=== PATIENT | female | born 1970 | race Two or more races ===

== ENCOUNTER → 2025-05-21 | Outpatient (CLI) | payer MEDICAID, SELFPAY ==
--- NOTE | 2025-05-21 09:15 | XR_ITS ---
Examination: Abdomen sonogram, complete Date and time of exam: May 21, 2025, 0906 hours INDICATIONS: Leukopenia and laboratory examination 3 months ago. Technique: Multiple real-time grayscale transabdominal sonographic images of the abdomen have been obtained. Findings: 7 mm sludge ball versus small gallstone Gallbladder wall 0.2 cm Common bile duct 0.4 cm Aorta not enlarged Liver 13.2 cm lobular contour no focal liver lesion Normal hepatopetal portal venous flow Patent IVC Right kidney 8.7 cm renal cortex 1.5 cm Left kidney 10.3 cm renal cortex 1.6 cm Mild right moderate left renal scar formation Spleen 9.5 cm IMPRESSION: 7 mm sludge ball versus gallstone Normal gallbladder wall Normal common bile duct Suspicious for primary hepatocellular disease
== END | disposition home or self-care (01) ==
PROVIDERS: PCP Internal Medicine Hematology & Oncology; Referring Provider Internal Medicine Hematology & Oncology; Visit Provider Internal Medicine Hematology & Oncology
DX: K82.9 Disease of gallbladder, unspecified (principal)
CPT/HCPCS: 76700